=== PATIENT | female | born 1970 | race Caucasian/White ===

== ENCOUNTER 2016-09-13 09:36 | Day surgery (SDC) | payer OTHER ==
--- NOTE | 2016-09-10 09:02 | HP ---
DATE OF CLINIC: 09/04/16 RICARDO WHITE : 1970 PLANNED PROCEDURE: Left Wrist ORIF of Ulnar Styloid Fracture vs. Excision of Fragments DATE OF SURGERY: September 13, 2016 SURGEON: Bharath Tavares M.D. PCP: Myke Manning MD HISTORY OF PRESENT ILLNESS Ricardo White is a 46 year old female. * Medication list reviewed with patient allergy list reviewed with patient. Patient returns to the clinic today for a Work Comp injury with a date of injury of 05/19/16 and patient underwent a left distal radius ORIF on 05/23/16. She is currently 3 months postop and has been attending [facility] hand therapy. Physical therapist provided a progress report which has shown improvement of wrist ROM and strengthening, but she still would benefit by further hand therapy as she has not met our objective. Patient today complains of a popping sensation in her wrist and pain along the ulnar carpal wrist. We discussed findings from her last visit with Bill of displaced ulnar styloid and discussed the risks and benefits of nonoperative and operative treatment and she has elected to proceed with surgery. She presents today preoperatively. CURRENT MEDICATION * Gabapentin 100 MG Capsule, conventional 3 three times a day 0 days, 0 refills * Zoloft 50 MG Tablet 1 once a day 0 days, 0 refills PAST MEDICAL/SURGICAL HISTORY Reported: Medical: Reported numbness, Reported tingling, and Asthma. Surgical / Procedural: Carpal Tunnel Surgery 07/2015. Physical Trauma: Open reduction internal fixation ORIF left wrist distal radius 05/23/[address] Bharath Tavares at [facility]. Surgical: * Hysterectomy Partial 06/2005 or 2005 SOCIAL HISTORY Social history changed. Behavioral: Quit smoking 03/2014 previously smoked 1-2 packs per week. Smoking status: Former smoker. 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 ALLERGIES * Erythromycin * Erythromycin Derivatives * Penicillin * Sulfa Drugs FAMILY HISTORY 4 children living Family medical history Father- Cancer REVIEW OF SYSTEMS No recent constitutional symptoms to include fevers and chills. No cardiovascular symptoms to include chest pain or palpitations. No respiratory symptoms to include shortness of breath or recent infections. PHYSICAL FINDINGS * Vitals taken 09/04/2016 02:27 pm BP-Sitting R 116/73 mmHg Pulse Rate-Sitting 71 bpm Temp-Oral 97.9 F Height 66 in Weight 200 lbs Body Mass Index 32.3 kg/m2 Body Surface Area 2.00 m2 Pain Level 5 Ears, Nose, Throat: * ENT: normal. Lungs: * Clear to auscultation. Cardiovascular: Heart Rate And Rhythm: * Normal. Abdomen: * Normal. Neurological: Motor: * Dominant Hand = Right Hand. Patient is alert and oriented and in no acute distress. She ambulates in on her own not wearing a wrist brace at this time. Left wrist exam: Patient has a volar wrist incision that appears healed. There is some mild scar tissue in that area. She has a Tinel's and compression test that is positive for paresthesia aggravation of the small and ring finger. Phalen test is negative. She has point tenderness in the area of the distal ulna/ulnar styloid. Passive wrist ROM today shows approximately volar flexion of 40 degrees and extension of approximately 25 degrees. Patient also has some mild irritation of the cubital tunnel of the left elbow with a positive Tinel's and compression of the ulnar nerve. IMAGING Repeat xrays of left wrist today were reviewed and shows distal radius ORIF with hardware intact without sign of loosening. There is a large fragment ulnar styloid that appears displaced and most likely contributing to some ulnar impingement irritation. Please refer to radiologic report for further details. ASSESSMENT * PARESTHESIA * Displaced fracture of styloid process of left ulna S/P left distal radius fracture, ORIF of left distal radius on 05/23/16. Ulnar carpal wrist pain with displaced ulnar styloid contributing to ulnar wrist pain. 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 THERAPY * Patient not eligible for fall risk assessment. PLAN * OTHER Percocet 5-325 MG TABS, 1-2 tablets every 4-6 hours as needed for pain, 5 days, 0 refills Left wrist ORIF of ulnar styloid fracture vs. excison of fragments. CARE TEAM Myke Manning MD Family Practice Cain Welch MD Physical Medicine & Rehabilitation SURGICAL CONSENT We have discussed surgical options including left wrist ORIF of ulnar styloid fracture vs. excision of fragments and nonoperative management. The patient was counseled in detail regarding the diagnosis, treatment options available, prognosis of each treatment option and the potential risks and complications. The risks of surgery include, but are not limited to, anesthetic , neurovascular complications, pulmonary embolism, deep vein thrombosis, wound dehiscence, failure of any or all of the discussed procedures, infection of the joint or surrounding soft tissue, need for revision surgery, chronic pain, limitations in activities of daily living, inability to return to work, and loss of normal range of motion or functional use of the extremity. There is the possibility of failure over time that may require additional operative or nonoperative treatment. The patient acknowledged that there are a number of perioperative risks not mentioned here and would still like to proceed. The patient is aware of and understands these risks, and wishes to proceed with the proposed surgical procedure and other procedures as indicated at the time of surgery. We will have the patient see their PCP for a preoperative medical risk assessment. The preoperative instructions were reviewed with the patient and all questions were answered.
[2016-09-13] MEDS ORDERED: LACTATED RINGERS 1,000 ML ONE (09:43)
[2016-09-13] MEDS ORDERED: IV START KIT ONE (09:44)
[2016-09-13] MEDS ORDERED: CLINDAMYCIN 600 MG PREMIX 50 ML IV ONE (09:44)
[2016-09-13] MEDS ORDERED: FENTANYL 100 MCG/2 ML VIAL ONE ×3 (10:16→12:55)
[2016-09-13] MEDS ORDERED: MIDAZOLAM HCL 1 MG/ML 2ML VIAL ONE (10:17)
[2016-09-13] MEDS ORDERED: SCOPOLAMINE 1.5 MG/72 HR 1 EACH PATCH TD ONE (10:23)
[2016-09-13] MEDS ORDERED: DEXAMETHASONE SOD PHOS 4 MG/1 ML VIAL ONE (11:23)
[2016-09-13] MEDS ORDERED: ONDANSETRON 4 MG/2ML 2 ML VIAL ONE (11:23)
[2016-09-13] MEDS ORDERED: PROPOFOL 20 ML IV ONE (11:23)
[2016-09-13] MEDS ORDERED: DIPHENHYDRAMINE HCL 50 MG/1 ML VIAL ONE (11:23)
[2016-09-13] MEDS ORDERED: LIDOCAINE 2% (PRES FREE) 5 ML VIAL ONE (11:23)
[2016-09-13] MEDS ORDERED: CLINDAMYCIN 600 MG PREMIX 50 ML IV PRN (11:30)
[2016-09-13] MEDS ORDERED: KETAMINE HCL UD SYRINGE 100 MG/2 ML IV ONE (11:35)
[2016-09-13] MEDS ORDERED: PROMETHAZINE HCL 25 MG/ML VIAL IM PRN (11:37)
[2016-09-13] MEDS ORDERED: NALOXONE HCL 0.4 MG/ML VIAL IV PRN (11:37)
[2016-09-13] MEDS ORDERED: ATROPINE SULFATE 0.4 MG/1 ML VIAL IV PRN (11:37)
[2016-09-13] MEDS ORDERED: ONDANSETRON 4 MG/2ML 2 ML VIAL IV PRN ×2 (11:37→13:17)
[2016-09-13] MEDS ORDERED: FENTANYL 100 MCG/2 ML VIAL IV PRN (11:37)
[2016-09-13] MEDS ORDERED: HYDROMORPHONE HCL 1 MG/ML SYRINGE IV PRN ×2 (11:37→13:17)
[2016-09-13] MEDS ORDERED: EPHEDRINE SULFATE UD SYR 25 MG 25 MG/5 ML SYRINGE IV ONE (11:40)
[2016-09-13] MEDS ORDERED: LACTATED RINGERS 1,000 ML IV SCH ×2 (11:45→13:17)
[2016-09-13] MEDS ORDERED: BUPIVACAINE 0.5% W/EPI SDV 30 ML VIAL ONE (12:16)
--- NOTE | 2016-09-13 12:48 | PCMBPN ---
Brief Post Op Note: Date of Procedure: 09/13/16 Start Time: 1140 Preoperative Diagnosis: 1. left wrist ulnar styloid nonunion Postoperative Diagnosis: 1. Same Procedure: left ulnar styloid fragment excision Surgeon: Bharath Tavares MD Assist: Marie Cat Anesthesia: Stanley العراقي Findings: as above; styloid fragmented and irreparable Condition: stable to PACU Complications: none IV Fluids: 800 mLs of LR Urine Output: 0 mLs Estimated Blood Loss: 5 mLs Tourniquet Time: 33 min at 250 mm Hg Specimens: none Implants: none Drains: none Bharath Tavares MD
--- NOTE | 2016-09-13 12:50 | RAD ---
Exam: Single view left wrist COMPARISON: 08/21/2016 INDICATION: Left ulnar styloid excision. Findings: Fluoroscopy was provided for Dr. Tavares. 24 seconds of fluoroscopy was utilized. Single static image was submitted for interpretation. This image demonstrates a surgical instrument just distal to the ulna; the ulnar styloid fragment is no longer seen. Hardware is noted within the distal left radius. This examination is otherwise limited for interpretation. IMPRESSION: Fluoroscopy was provided for Dr. Tavares for surgery in the left wrist.
[2016-09-13] MEDS ORDERED: HYDROMORPHONE HCL 1 MG/ML SYRINGE ONE (13:03)
--- NOTE | 2016-09-13 13:11 | RAD ---
Exam: Two-view left wrist COMPARISON: Intraoperative exam 09/13/2016 and radiographs 08/21/2016 INDICATION: Status post excision of left ulnar styloid fragment. Finding: PA and lateral views of the left wrist were obtained. Overlying bandaging material obscures fine bony detail. The ulnar styloid fragment has been removed. Postsurgical changes of volar plate and screw fixation within the distal left radius are unchanged. Carpal alignment appears maintained. IMPRESSION: The ulnar styloid fragment has been removed.
[2016-09-13] MEDS ORDERED: DIPHENHYDRAMINE HCL 50 MG/1 ML VIAL IV PRN (13:17)
[2016-09-13] MEDS ORDERED: ACETAMINOPHEN 325 MG TABLET PO PRN (13:17)
[2016-09-13] MEDS ORDERED: OXYCODONE/ACETAMINOPHEN 5/325 MG TABLET PO PRN (13:17)
[2016-09-13] MEDS ORDERED: HYDROMORPHONE HCL 0.5 MG/0.5 ML SYRINGE ONE (13:28)
[2016-09-13] MEDS ORDERED: SODIUM CHLORIDE 0.9% FLUSH 10 ML ONE (13:34)
[2016-09-13] MEDS ORDERED: OXYCODONE/ACETAMINOPHEN 5/325 MG TABLET ONE (14:29)
--- NOTE | 2016-09-14 09:22 | OP ---
Harika WHITE : 1970 [id number] DATE OF SERVICE: September 13, 2016 PREOPERATIVE DIAGNOSIS: Left wrist ulnar styloid fracture nonunion. POSTOPERATIVE DIAGNOSIS: Left wrist ulnar styloid fracture nonunion. PROCEDURE PERFORMED: LEFT ULNAR STYLOID FRAGMENT EXCISION. SURGEON: Bharath Tavares M.D. WAISTLINE JOINER LOCKSTITCH: Alise PintoFToby ANESTHESIA: Jerome Lopez.R.N.Alexandrea SPECIMENS: No material was sent to the laboratory. ESTIMATED BLOOD LOSS: 5 mL FLUIDS REPLACED: 800 mL of crystalloid. TOURNIQUET TIME: Was 33 minutes at 250 mmHg. IMPLANTS: None. DRAINS: None. INDICATIONS: This is a 46-year-old female who previously underwent an open reduction internal fixation for a left distal radius fracture. At that time she had a small fracture of her ulnar styloid which did not appear amenable to fixation. This was treated nonoperatively and she subsequently continued to have pain about the ulnar side of her wrist. Risks, benefits and alternatives of open reduction internal fixation of the ulnar styloid versus excision were discussed at length with the patient and she elected to proceed. Informed consent was obtained and documented in the chart and the patient was placed on the schedule the first available convenience. DESCRIPTION OF PROCEDURE: The patient was identified in the pre-operative holding area where she was marked with an indelible marker by the operating surgeon. She was taken to the operating room where she was placed in the supine position on the operating room table. General anesthesia was induced. Preoperative antibiotics were administered. A well padded pre-calibrated nonsterile tourniquet was placed on her left upper arm. She was prepped and draped in the usual sterile fashion for surgery. She received perioperative antibiotics. A final operative time out was performed and confirmed by all members of the operative team. The arm was elevated and exsanguinated using an Esmarch bandage and the tourniquet was inflated to 250 mmHg. A longitudinal incision was made overlying the ulnar styloid ensuring that we avoided that neurovascular structures. Dissection was carried down to the dorsal ulnar capsule. This was incised longitudinally and the ulnar styloid fragment was identified. Attempts were made to reduce this to its penobscot position but there was extensive scar tissue around the styloid itself and even with debridement of the bed. There was not an adequate position to be able to place it in. An attempt was made to spear it with a K-wire and hold it into appropriate position in the styloid fragment and at this point given the comminution the decision was made to excise the fragment and this was done by sharply dissecting it away from its insertions to the capsule. Of note the TFCC appeared to be well anchored to the residual base of the styloid. The wound was copiously irrigated with sterile saline. The capsule was closed and the closure of the incision in layers was performed. A sterile dressing of Xeroform, fluffs, web roll and an ulnar gutter splint was applied and held in place with an MIKE bandage. The tourniquet was deflated, the drapes were removed. The patient was awakened from her anesthesia and transferred to the stretcher and taken postoperatively to the postanesthesia care unit in stable condition. There were no observed intraoperative complications during this procedure. Job [id number] cc: [facility]
== END 2016-09-13 15:35 | disposition home or self-care (01) ==
LOC: SDC 09:36
PROVIDERS: ATTEND Orthopaedic Surgery
PROC: 0PBL0ZZ Excision of Left Ulna, Open Approach (ICD-10-PCS; principal; 2016-09-13)
DX: S52.612K Displaced fracture of left ulna styloid process, subsequent encounter for closed fracture with nonunion (principal); R20.8 Other disturbances of skin sensation; Z87.891 Personal history of nicotine dependence; Z88.2 Allergy status to sulfonamides; Z88.0 Allergy status to penicillin; Z88.1 Allergy status to other antibiotic agents
CPT/HCPCS: 76000; 73100 ×2; 25240; J1200; J1170 ×2; J3010 ×3; J1100; A9270 ×2; J2250; J2405; J7120

== ENCOUNTER 2016-11-02 13:44 | Day surgery (SDC) | payer OTHER ==
[~2016-11-02 13:44] MED LIST: CLINDAMYCIN 600 MG PREMIX 50 ML IV ONE; CLINDAMYCIN 600 MG PREMIX 50 ML IV PRN; IV START KIT ONE; LACTATED RINGERS 1,000 ML ONE
[2016-11-02] MEDS ORDERED: BUPIVACAINE 0.5% (PRES FREE) 30 ML VIAL ONE (14:35)
[2016-11-02] MEDS ORDERED: LIDOCAINE 1% (PRES FREE) 30 ML VIAL ONE (14:35)
[2016-11-02] MEDS ORDERED: MIDAZOLAM HCL 1 MG/ML 2ML VIAL ONE (14:39)
[2016-11-02] MEDS ORDERED: FAMOTIDINE 10 MG/ML 2ML VIAL ONE (14:39)
[2016-11-02] MEDS ORDERED: FENTANYL 100 MCG/2 ML VIAL ONE (14:39)
[2016-11-02] MEDS ORDERED: DEXAMETHASONE SOD PHOS 4 MG/1 ML VIAL ONE (14:39)
[2016-11-02] MEDS ORDERED: ONDANSETRON 4 MG/2ML 2 ML VIAL ONE (14:39)
[2016-11-02] MEDS ORDERED: PROPOFOL 40 ML IV ONE (14:56)
[2016-11-02] MEDS ORDERED: KETAMINE HCL UD SYRINGE 100 MG/2 ML IV ONE (14:56)
[2016-11-02] MEDS ORDERED: PROPOFOL 20 ML IV ONE (16:47)
--- NOTE | 2016-11-02 17:19 | PCMBPN ---
Brief Post Op Note: Date of Procedure: 11/02/16 Start Time: 1630 Preoperative Diagnosis: 1. left wrist symptomatic hardware Postoperative Diagnosis: 1. Same Procedure: left wrist hardware removal Surgeon: Bharath Tavares MD Assist: none Anesthesia: local + MAC Findings: as above Condition: stable to SDS Complications: none IV Fluids: 600 mLs of LR Urine Output: 0 mLs Estimated Blood Loss: 3 mLs Tourniquet Time: 8 min at 250 mm Hg Specimens: none Implants: 1 screw removed from plate Drains: none Bharath Tavares MD
[2016-11-02] MEDS ORDERED: OXYCODONE/ACETAMINOPHEN 5/325 MG TABLET PO PRN (17:25)
[2016-11-02] MEDS ORDERED: ACETAMINOPHEN 325 MG TABLET PO PRN (17:25)
[2016-11-02] MEDS ORDERED: HYDROMORPHONE HCL 1 MG/ML SYRINGE IV PRN (17:25)
[2016-11-02] MEDS ORDERED: DIPHENHYDRAMINE HCL 50 MG/1 ML VIAL IV PRN (17:25)
[2016-11-02] MEDS ORDERED: ONDANSETRON 4 MG/2ML 2 ML VIAL IV PRN (17:25)
[2016-11-02] MEDS ORDERED: LACTATED RINGERS 1,000 ML IV SCH (17:25)
[2016-11-02] MEDS ORDERED: OXYCODONE/ACETAMINOPHEN 5/325 MG TABLET ONE (18:22)
--- NOTE | 2016-11-02 22:05 | RAD ---
WRIST LEFT 2 VIEWS COMPARISON: CT of the left wrist, 10/08/2016. Left wrist 3 views, 09/28/2016 HISTORY: Removal of screw from hardware from the distal left radius FINDINGS: Views: Lateral left wrist obtained in the OR. Bones: Ventral plate and screws in the distal left radius. A screwdriver is been attached to the proximal screw. Joints:Normal. Soft tissue: Normal. IMPRESSION: 1. Intraoperative radiograph showing a screwdriver been attached to the proximal screw of the hardware at the distal left radius.
--- NOTE | 2016-11-05 09:27 | HP ---
DATE OF CLINIC: 10/19/2016 RICARDO WHITE : 1970 PLANNED PROCEDURE: Left Wrist hardware removal (screw) DATE OF SURGERY: November 02, 2016 SURGEON: Bharath Tavares M.D. HISTORY OF PRESENT ILLNESS Ricardo White is a 46 year old female. * Medication list reviewed with patient allergy list reviewed with patient. Patient returns today for pre-op appointment for screw removal from left wrist. CT demonstrated that her point of maximal tenderness is directly over the tip of a prominent screw from the volar side of the wrist; also showed incomplete healing of the fracture site. Given this, patient was offered removal of the offending screw while retaining the rest of her stabilizing hardware. After discussion and review of treatment options, both operative and non-operative, the patient has elected to proceed with left wrist hardware removal. She presents today preoperatively. CURRENT MEDICATION * Gabapentin 100 MG Capsule 3 three times a day 0 days, 0 refills * Zoloft 50 MG Tablet 1 once a day 0 days, 0 refills PAST MEDICAL/SURGICAL HISTORY Reported: Medical: Reported numbness, Reported tingling, and Asthma. Surgical / Procedural: Prior surgery Left wrist ulnar styloid fragment excision 09/13/[address] Bharath Tavares at [facility] and Carpal Tunnel Surgery 07/2015. Physical Trauma: Open reduction internal fixation ORIF left wrist distal radius 05/23/[address] Bharath Tavares at [facility]. Surgical: * Hysterectomy Partial 06/2005 or 2005 SOCIAL HISTORY Social history changed. Behavioral: No tobacco use and not chewing tobacco. Quit smoking 03/2014 previously smoked 1-2 packs per week. Smoking status: Former smoker. Alcohol: No consumption of alcohol. Drug Use: Not using drugs. 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 ALLERGIES * Erythromycin * Erythromycin Derivatives * Penicillin * Sulfa Drugs FAMILY HISTORY 4 children living Family medical history Father- Cancer REVIEW OF SYSTEMS No recent constitutional symptoms to include fevers and chills. No cardiovascular symptoms to include chest pain or palpitations. No respiratory symptoms to include shortness of breath or recent infections. PHYSICAL FINDINGS * Vitals taken 10/19/2016 02:12 pm BP-Sitting R 116/63 mmHg Pulse Rate-Sitting 81 bpm Temp-Oral 98.3 F Height 66 in Weight 205 lbs 3.2 oz Body Mass Index 33.1 kg/m2 Body Surface Area 2.02 m2 Pain Level 6 Ears, Nose, Throat: * ENT: normal. Lungs: * Clear to auscultation. Cardiovascular: Heart Rate and Rhythm: * Normal. Abdomen: * Normal. Neurological: Motor: * Dominant Hand = Right Hand. Patient is alert and oriented and in no acute distress. She ambulates in on her own. She has a postop dressing and postop splint in place. This was removed in the office. Left wrist exam: She has an ulnar incision approximately 2cm in length that is well healed. She also has a grating type sensation that can be felt on the dorsum of the distal 1/3 radius near the proximal border of the volar plate and screw. This location is tender to the patient. The fingers are pink. IMAGING Patient was sent after her visit for x-rays of her wrist showing a soft tissue marker near the dorsal proximal plate/screw. The plate and screws are well fixed without sign of loosening. CT confirms the above, and shows the muscle belly deforming around the offending screw. Please refer to radiologic report for further details. ASSESSMENT S/P left wrist ulnar styloid fragment excision on 09/13/16. Prominent hardware causing soft tissue irritation. THERAPY * Patient not eligible for fall risk assessment. PLAN * OTHER Percocet 5-325 MG TABS, 1-2 tablets every 4-6 hours as needed for pain, 5 days, 0 refills Left wrist screw removal. CARE TEAM Myke Manning MD Family Practice Cain Welch MD Physical Medicine & Rehabilitation SURGICAL CONSENT We have discussed surgical options including left wrist screw removal and non-operative management. The patient was counseled in detail regarding the diagnosis, treatment options available, prognosis of each treatment option and the potential risks and complications. The risks of surgery include, but are not limited to, anesthetic , neurovascular complications, pulmonary embolism, deep vein thrombosis, wound dehiscence, failure of any or all of the discussed procedures, infection of the joint or surrounding soft tissue, need for revision surgery, chronic pain, limitations in activities of daily living, inability to return to work, and loss of normal range of motion or functional use of the extremity. There is the possibility of failure over time that may require additional operative or non-operative treatment. The patient acknowledged that there are a number of perioperative risks not mentioned here and would still like to proceed. The patient is aware of and understands these risks, and wishes to proceed with the proposed surgical procedure and other procedures as indicated at the time of surgery. We will have the patient see their PCP for a preoperative medical risk assessment. The preoperative instructions were reviewed with the patient and all questions were answered. PB/sg
--- NOTE | 2016-11-06 12:39 | OP ---
Harika WHITE : 1970 [id number] DATE OF SERVICE: November 02, 2016 PREOPERATIVE DIAGNOSIS: Left wrist symptomatic hardware. POSTOPERATIVE DIAGNOSIS: Left wrist symptomatic hardware. PROCEDURE PERFORMED: LEFT WRIST HARDWARE REMOVAL. SURGEON: Bharath Tavares M.D. THERMAL CUTTER HAND: None. ASSOCIATE DIRECTOR REGULATORY AFFAIRS: Local and monitored anesthesia care by Leobardo Gilbert C.R.N.A. SPECIMENS: No material was sent to the laboratory. ESTIMATED BLOOD LOSS: 3 mL FLUIDS REPLACED: 600 mL of crystalloid. TOURNIQUET TIME: Was 8 minutes at 250 mmHg. IMPLANTS: One screw was removed from the proximal plate. DRAINS: None. INDICATIONS: This is a 46-year-old right-hand dominant female who has persistent pain over her dorsal forearm from a screw that is projecting past the dorsal cortex of her radius that was placed during open reduction internal fixation for distal radius fracture. We have confirmed that this location of the longest screw correlates with her point of maximal tenderness and so we are going to take the screw out to see if this improves her symptoms. DESCRIPTION OF PROCEDURE: The patient was identified in the pre-operative holding area and marked with an indelible marker by the operating surgeon. She was taken to the operating room where she was placed in supine position on the operating room table. A well padded pre-calibrated nonsterile tourniquet was placed on her left upper arm. She received perioperative antibiotics. She was prepped and draped in the usual sterile fashion for surgery. She received intravenous sedation; 10 mL of a 1:1 mixture of 1% lidocaine and 0.5% Marcaine was injected into the area around the screw. A final operative time out was performed and confirmed by all members of the operative team. The arm was elevated and exsanguinated using an Esmarch bandage and tourniquet was inflated to 250 mmHg. A longitudinal incision 1 cm in length was made and blunt dissection was carried down identifying the proximal screw. Positioning was confirmed on intraoperative fluoroscopy and the screwdriver was used to remove a single screw. The wound was copiously irrigated with sterile saline and closed with two horizontal mattresses of #4-0 Nylon. The tourniquet was deflated. A sterile dressing of Xeroform, fluffs, web roll and an MIKE bandage was applied. The drapes were removed. The patient was awakened from her sedation and transferred to a stretcher and taken postoperatively to the postanesthesia care unit in stable condition. There were no observed intraoperative complications. Job [id number] cc: [facility]
== END 2016-11-02 18:59 | disposition home or self-care (01) ==
LOC: SDC 13:44
PROVIDERS: ATTEND Orthopaedic Surgery
PROC: 0PPJ04Z Removal of Internal Fixation Device from Left Radius, Open Approach (ICD-10-PCS; principal; 2016-11-02)
DX: T84.84XA Pain due to internal orthopedic prosthetic devices, implants and grafts, initial encounter (principal); Z79.899 Other long term (current) drug therapy; Z88.1 Allergy status to other antibiotic agents; Z88.0 Allergy status to penicillin; Z88.2 Allergy status to sulfonamides
CPT/HCPCS: 76000; 73100; 20680; J3010; J1100; A9270; J2250; J2001; J2405; J7120